=== PATIENT | female | born 1985 | race African-American/Black ===

== ENCOUNTER 2019-11-24 16:05 | Emergency (ER) | payer SELFPAY ==
[~2019-11-24] VITALS: Ht 182.9 cm; Wt 65.0 kg
[2019-11-24] MEDS ORDERED: OLANZAPINE 10 MG/VIAL IM STA (17:40)
[2019-11-24] MEDS ORDERED: DIPHENHYDRAMINE 50MG/ML VIAL IM STA (17:40)
[2019-11-24] MEDS ORDERED: HALOPERIDOL LACTATE 5MG/ML VIAL IM ONE ×2 (19:30)
[2019-11-24 22:50] LABS: BASOPHILS % 0.8 % (0.0-2.0); EOSINOPHILS % 4.7 % (0.0-5.0); HEMOGLOBIN. 11.4 g/dL (12.0-16.0); LYMPHOCYTES % 27.1 % (20.0-50.0); MEAN CORPUSCULAR HEMOGLOBIN 27.5 pg (28.0-32.0); MEAN CORPUSCULAR VOLUME 82.2 fL (81.0-99.0); MEAN PLATELET VOLUME 8.8 fl (7.4-10.4); MONOCYTES % 9.8 % (2.0-8.0); NEUTROPHILS % 57.6 % (40.0-76.0); PLATELET 265 x1000/uL (130-400); RED BLOOD CELL COUNT 4.14 mill/uL (4.2-5.4); RED CELL DISTRIBUTION WIDTH 14.9 % (11.6-14.6)
[2019-11-24 22:55] LABS: CHLORIDE 109 mEq/L (98-107)
[2019-11-24 22:58] LABS: ETHANOL BLOOD < 10 mg/dL
[2019-11-24 23:27] LABS: CLARITY URINE CLEAR (CLEAR); COLOR URINE YELLOW (YELLOW); KETONES URINE NEGATIVE (NEGATIVE); LEUKOCYTE ESTERASE URINE NEGATIVE (NEGATIVE); NITRITE URINE NEGATIVE (NEGATIVE); OCCULT BLOOD URINE NEGATIVE (NEGATIVE); PROTEIN URINE NEGATIVE (NEGATIVE)
[2019-11-25 00:01] LABS: *BARBITURATES SCREEN URINE NEGATIVE (NEGATIVE); *BENZODIAZEPINES SCREEN URINE NEGATIVE (NEGATIVE); *COCAINE SCREEN URINE NEGATIVE (NEGATIVE); METHADONE URINE SCREEN NEGATIVE (NEGATIVE); OPIATES URINE SCREEN NEGATIVE (NEGATIVE); PHENCYCLIDINE URINE SCREEN NEGATIVE (NEGATIVE)
[2019-11-25 00:02] LABS: CANNABINOID URINE SCREEN NEGATIVE (NEGATIVE)
[2019-11-25 00:07] LABS: *AMPHETAMINES SCREEN URINE PRESUMTIVE POSITIVE (NEGATIVE)
[2019-11-27] MEDS ORDERED: LORAZEPAM 1MG TABLET PO ONE (15:30)
[2019-11-27] MEDS ORDERED: GUAIFENESIN/CODEINE 200-20MG/10ML UDC PO ONE (15:30)
[2019-11-27] MEDS ORDERED: OLANZAPINE 10MG TABLET PO SCH (18:45)
[2019-11-28] MEDS ORDERED: GUAIFENESIN/CODEINE 200-20MG/10ML UDC PO ONE (05:00)
[2019-11-28] MEDS ORDERED: GUAIFENESIN/CODEINE 100-10MG/5ML UDC PO NR (05:15)
[2019-11-28 16:23] VITALS: BP 123/72
== END 2019-11-28 16:30 | disposition home or self-care (01) ==
LOC: EDBD 16:05 → ER 16:05
DX: R45.851 Suicidal ideations (principal); F15.90 Other stimulant use, unspecified, uncomplicated; F31.9 Bipolar disorder, unspecified; F20.9 Schizophrenia, unspecified; Z78.1 Physical restraint status
CPT/HCPCS: 36415; 80053; 80305; 80307; 80320; 81003; 85025; 96372; 99283; J1200; J1630; J3490; G0480

== ENCOUNTER 2020-01-26 11:22 | Emergency (ER) | payer MEDICAID ==
[~2020-01-26] VITALS: Ht 175.3 cm; Wt 60.0 kg
[2020-01-26 12:36] VITALS: BP 0/0
== END 2020-01-26 15:28 | disposition left against medical advice (07) ==
LOC: ER 12:30
DX: Z53.21 Procedure and treatment not carried out due to patient leaving prior to being seen by health care provider (principal)